=== PATIENT | male | born 1960 | race African-American/Black ===

== ENCOUNTER 2018-04-19 22:39 | Emergency (ER) | payer OTHER ==
[~2018-04-19] VITALS: Ht 172.7 cm; Wt 84.8 kg
[2018-04-19 22:45] VITALS: BP 165/90
[2018-04-19] MEDS ORDERED: ACETAMINOPHEN ES 500 MG TABLET ONE (23:31)
[2018-04-19] MEDS: ACETAMINOPHEN 325 MG TABLET PO ONE (23:32)
--- NOTE | 2018-04-20 02:22 | NUR ---
Patient discharged to home in stable condition. Written and verbal after care instructions given. Patient verbalizes understanding of instruction. Pt left hosptial via wheelchair and picked up by friend in stable condition.
== END 2018-04-20 01:00 | disposition home or self-care (01) ==
LOC: ER 22:42
DX: S82.61XA Displaced fracture of lateral malleolus of right fibula, initial encounter for closed fracture (principal); S62.336A Displaced fracture of neck of fifth metacarpal bone, right hand, initial encounter for closed fracture; I50.9 Heart failure, unspecified; F12.90 Cannabis use, unspecified, uncomplicated; W01.0XXA Fall on same level from slipping, tripping and stumbling without subsequent striking against object, initial encounter; Y93.89 Activity, other specified; Y92.89 Other specified places as the place of occurrence of the external cause; Y99.8 Other external cause status
CPT/HCPCS: 73130-TC; 73610-TC; A4606; Z7610

== ENCOUNTER 2018-04-28 04:39 | Emergency (ER) | payer OTHER ==
[~2018-04-28] VITALS: Ht 172.7 cm; Wt 83.9 kg
[2018-04-28 04:45] VITALS: BP 164/79
== END 2018-04-28 06:00 | disposition home or self-care (01) ==
LOC: ER 04:39
DX: S82.61XA Displaced fracture of lateral malleolus of right fibula, initial encounter for closed fracture (principal); S62.336A Displaced fracture of neck of fifth metacarpal bone, right hand, initial encounter for closed fracture; I50.9 Heart failure, unspecified; W18.39XA Other fall on same level, initial encounter; Y92.89 Other specified places as the place of occurrence of the external cause; Y99.8 Other external cause status; Y93.67 Activity, basketball
CPT/HCPCS: A4606; Z7610